=== PATIENT | female | born 1970 ===

== ENCOUNTER 2023-02-27 22:04 | Emergency (ER) | payer MEDICAID ==
[~2023-02-27] VITALS: Ht 165.1 cm; Wt 77.0 kg
[2023-02-27 22:10] VITALS: BP 124/80
== END 2023-02-28 04:27 | disposition left against medical advice (07) ==
LOC: ER 22:05
DX: F29 Unspecified psychosis not due to a substance or known physiological condition (principal); Z53.21 Procedure and treatment not carried out due to patient leaving prior to being seen by health care provider
CPT/HCPCS: 99281